=== PATIENT | male | born 1995 | race Caucasian/White ===

== ENCOUNTER 2019-09-29 11:49 | Observation (INO) | payer MEDICAID, SELFPAY ==
[2019-09-29] VITALS (10 sets, daily range): BP systolic 117–158; BP diastolic 52–87; PULSE 50–57; RESP 16–29; TEMP 36.6–36.7; O2SAT 98–100; BMI 19.6
--- NOTE | ~2019-09-29 | US_ITS ---
EXAMINATION: US right upper quadrant EXAM DATE: 09/30/2019 15:00 INDICATION: Generalized abdominal pain. TECHNIQUE: Multiple grayscale and Doppler images of the abdomen right upper quadrant were obtained (lauri y a technologist who performed the scan) and subsequently reviewed. There is no prior study for kat hilario. Correlation was made with CT abdomen from yesterday. FINDINGS: The pancreatic head and body are normal in appearance. The pancreatic tail is not visualized. The l iver has normal echogenicity and contour. There are no focal liver lesions identified. There is no evidence of intrahepatic biliary duct dilation. Portal venous flow was seen in the hepatopedal, nor mal direction and has normal Doppler waveform. No right-sided hydronephrosis. Common bile duct measures 2 mm, which is normal. The gallbladder wall is normal in thickness, with ex pected amount of distention. No sonographic evidence of pericholecystic fluid. There is no cholelit hiases. Technologist performing exam reports patient did not demonstrate sonographic Shell's sign. Please note that this sign is less reliable in patients who have received pain medication. IMPRESSION: 1. Unremarkable abdominal ultrasound exam. Reviewed, dictated and finalized at location A.
--- NOTE | ~2019-09-29 | NM_ITS ---
EXAMINATION: NM hepatobiliary w pharm DATE: 10/01/2019 14:56 INDICATION: Intractable nausea and abdominal pain COMPARISON: None. TECHNIQUE: 4.5 mCi Tc-99m mebrofenin (Choletec) was administered intravenously. Scintigraphic images of the abdomen were obtained for one hour. 1.35 mcg sincalide (Kinevac) was administered by slow int ravenous infusion, and imaging was continued for 30 minutes. Gallbladder ejection fraction was calcul ated by the technologist. FINDINGS: There is normal clearance of radiotracer from the blood pool. There is homogeneous tracer uptake by t he liver. Activity progresses to the gallbladder and bowel. The gallbladder ejection fraction is daya ble to be obtained due to large amount of activity in the small bowel which during the course of the study progresses to loops superimposed over the gallbladder. During the first 14 minutes following Ki nevac administration the amount of activity in the gallbladder appeared to slowly increase. There is however a nonquantifiable significant decrease in activity in the gallbladder between the 1 hour lenora yed images and the first image post Kinevac administration suggesting a likely normal ejection fracti on. IMPRESSION: 1. Normal hepatobiliary scan aside from nondiagnostic quantitative assessment for ejection fraction due to obscuration of the gallbladder by activity in the small bowel occurring following Kinevac admi nistration. Subjectively there appears to be normal, gallbladder ejection fraction occurring prior to Kinevac administration. Reviewed, dictated and finalized at location A. IMPRESSION: 1. Normal hepatobiliary scan aside from nondiagnostic quantitative assessment for ejection fraction due to obscuration of the gallbladder by activity in the small bowel occurring following Kinevac administration. Subjectively there appe ars to be normal, gallbladder ejection fraction occurring prior to Kinevac admi nistration.
--- NOTE | ~2019-09-29 | CT_ITS ---
EXAMINATION: CT abdomen pelvis w con DATE: 09/29/2019 13:35 INDICATION: Abdominal pain. Nausea. TECHNIQUE: Computed tomography (CT) of the abdomen and pelvis was performed with 100 cc Omnipaque 350 intravenous contrast. The dose-length product was 212.07 mGy-cm. Automated exposure control and iter ative reconstruction technique were employed. COMPARISON: None. FINDINGS: Lung bases are unremarkable. No significant pleural or pericardial effusion. Heart size is normal. No significant vascular abnormality. No lymphadenopathy. The liver, spleen, pancreas, adrenal glands and kidneys are unremarkable. Gallbladder is present. The re is a low-lying cecum which is fluid and debris-filled. No obstruction. No acute osseous abnormalit y. No free air or free fluid. IMPRESSION: 1. No acute abdominal abnormality. Reviewed, dictated and finalized at location A.
[2019-09-29] MEDS: SODIUM CHLORIDE 0.9% IV 1,000 ML 999 ML IV CONT ×2 (12:23→12:51)
[2019-09-29] MEDS: FAMOTIDINE 20 MG/2 ML VIAL IV PUSH ×2 (12:24→20:33)
[2019-09-29] MEDS: ONDANSETRON INJ 4 MG/2 ML VIAL IV PUSH (12:25)
[2019-09-29] MEDS: LORAZEPAM INJ 2 MG/ML VIAL 1 MG IV PUSH (12:30)
[2019-09-29 12:59] LABS: Basophils Percent Auto 0.4 % (0.2-1.2); Eosinophils Percent Auto 0.2 % (0-4.4); Hematocrit 46.8 % (42.0-52.0); Immature Granulocyte Absolute 0.05 K/mm3 (0.00-0.031); Immature Granulocyte Percent A 0.5 % (0-0.5); Lymphocytes Percent Auto 13.8 % (18.3-44.2); Mean Corpuscular HGB Conc 34.2 g/dl (32-36); Mean Corpuscular Hemoglobin 30.7 pg (26-34); Mean Corpuscular Volume 89.7 fl (80-100); Mean Platelet Volume 10.1 fl (7.4-10.4); Monocytes Absolute Auto 0.4 K/mm3 (0.1-0.6); Monocytes Percent Auto 3.7 % (2.6-8.5); Neutrophils Absolute Auto 8.3 K/mm3 (1.3-6.7); Neutrophils Percent Auto 81.4 % (45.5-73.1); Platelet Count Result 314 k/mm3 (150-375); Red Blood Count 5.22 M/mm3 (4.6-6.20); Red Cell Distribution Width 12.2 % (11.5-14.5); White Blood Count 10.2 K/mm3 (4.5-10.0)
[2019-09-29 13:10] LABS: Lactic Acid Reflex 1.1 mmol/L (0.7-2.1)
[2019-09-29 13:11] LABS: Alanine Aminotransferase 14 U/L (4-50); Albumin Level 4.6 g/dL (3.5-5.1); Alkaline Phosphatase 96 U/L (38-126); Aspartate Amino Transferase 22 U/L (17-59); Bilirubin,Total 1.1 mg/dL (0.2-1.3); Blood Urea Nitrogen 22 mg/dL (9-20); Calcium 8.9 mg/dL (8.4-10.2); Carbon Dioxide 16 mmol/L (22-30); Chloride 101 mmol/L (98-107); Estimated CRCL calculation 101 ml/min; Estimated Glomerular Filt Rate > 60; Glucose 73 mg/dL (75-110); Lipase 56 U/L (23-300); Potassium 3.1 mmol/L (3.4-5.0); Sodium 135 mmol/L (137-145)
--- NOTE | 2019-09-29 13:28 | ED.ABDPAIN ---
HPI - Abdominal Pain General Chief Complaint: Abdominal Pain <Lonnie Pastor PA-C - Last Filed: 09/29/19 16:37> Stated Complaint: abd pain <PAMELA Alcala Last Filed: 09/29/19 16:37> Source: patient <PAMELA Alcala Last Filed: 09/29/19 16:37> Mode of arrival: ambulatory <Lonnie Pastor PA-C - Last Filed: 09/29/19 16:37> Limitations: no limitations <Lonnie Pastor PA-C - Last Filed: 09/29/19 16:37> History of Present Illness HPI narrative: Patient is a 23-year-old male who presents to emergency department for evaluation of generalized abdominal pain noted as an aching pain worse with activity and movement patient had similar occurrence in the past. Patient has medications for pain nausea which she has taken with no improvement. Patient notes for the last 2 days he has been having vomiting with generalized abdominal pain. Patient notes he has not followed up for any reevaluation of his prior occurrence. Patient denies diarrhea rectal bleeding hematemesis URI symptoms or fever <Lonnie Pastor PA-C - Last Filed: 09/29/19 16:37> Related Data Home Medications: Home Medications Medication Instructions Recorded Confirmed ondansetron HCl [Zofran] 09/29/19 pantoprazole PO 09/29/19 <Lonnie Pastor PA-C - Last Filed: 09/29/19 16:37> Allergies/Adverse Reactions: Allergies Allergy/AdvReac Type Severity Reaction Status Date / Time No Known Allergies Allergy Verified 09/29/19 12:12 <Lonnie Pastor PA-C - Last Filed: 09/29/19 16:37> Review of Systems Review of Systems: All systems reviewed & are unremarkable except as noted in HPI and below <Lonnie Pastor PA-C - Last Filed: 09/29/19 16:37> PMFSH Social History Social History: Social History (Updated 09/29/19 @ 13:30 by Lonnie Pastor PA-C) Substance use type: amphetamines Gender identity (if verbalized by the patient): Male <Lonnie Pastor PA-C - Last Filed: 09/29/19 16:37> Exam Narrative: Exam Narrative: GENERAL: Ill-appearing, well-nourished, and acute pain distress HEAD: Normocephalic, atraumatic. EYES: PERRLA and EOMI. ENT: Nares clear, no rhinorrhea or epistaxis. Mucous membranes moist. Oropharynx without tonsillar hypertrophy exudate or other lesions. CHEST: Clear to auscultation. No respiratory distress. No wheezes rales or rhonchi HEART: Regular rate and rhythm. No murmur heard. Normal peripheral pulses. ABDOMEN: Firm with generalized tenderness and guarding, nondistended, normal active bowel sounds. EXTREMITIES: Normal range of motion. No edema. SKIN: Warm, dry, no rash. NEURO: No focal deficits. Alert and oriented x3. Cranial nerves II through XII grossly intact PSYCH: Normal mood and affect. <PAMELA Alcala Filed: 09/29/19 16:37> Course Course Emergency Course: She is patient in the room at this time aware of case findings treatment plan agreeing to stay in hospital for GI evaluation to evaluate his pain and vomiting patient aware of this and agreeing to stay in hospital attempts were made to get the patient home however he continues to have severe pain and emesis despite interventions <PAMELA Alcala Filed: 09/29/19 16:37> PARISH VISITOR/PA Physician Supervision For this encounter, I have reviewed the PA documentation, treatment plan and medical decision making: And I have had lphe-ma-[id number] time with the patient. On exam heart regular rate and rhythm without murmur, lungs clear all station bilaterally, the abdomen is soft and diffusely tender to palpation, no rebound or guarding. Discussed with patient need for admission all questions answered in agreement at this time <Paco Arana DO - Last Filed: 09/29/19 16:44> Consultations Consultation #1: Discussed case with botany laboratory assistant who will consult on patient Discussed case with hospitalist who is agreed to accept the patient <PAMELA Alcala
[2019-09-29 14:09] LABS: Add Urine Microscopic? YES; Appearance Urine Clear (Clear); Bilirubin Urine Negative (Negative); Blood Urine Negative (Negative); Color Urine Yellow (Yellow); Glucose Urine UA Negative (Negative); Ketones Urine 2+ mg/dL (Negative); Leukocyte Esterase Ur Negative LEU/UL (Negative); Mucus Urine Rare /lpf; Nitrate Urine Negative (Negative); Protein Urine 1+ mg/dL (Negative); RBC Urine 0-2 /hpf (0-2); Specific Grav Ur 1.049 (1.001-1.035); Urobilinogen Urine Negative mg/dL (<2.0); WBC Urine 0-3 /hpf
[2019-09-29 14:23] LABS: Amphetamine Screen Urine Negative (Negative); Barbiturate Screen Urine Negative (Negative); Benzodiazepines Screen Urine Negative (Negative); Cannabinoid Screen Urine Positive (Negative); Cocaine Screen Urine Negative (Negative); Methadone Screen Urine Negative (Negative); Opiate Screen Urine Positive (Negative); Phencyclidine Screen Urine Negative (Negative)
--- NOTE | 2019-09-29 14:58 | PC.NURSE ---
EVAN Hernández, at bedside discussing plan of care. Pt awakens and denies any relief of pain whatsoever at present. [facility] does not have a primary doctor nor a cyber security instructor to follow up with.
[2019-09-29] MEDS: HYOSCYAMINE SULFATE 0.125 MG TABLET PO (15:14)
[2019-09-29] MEDS: IBUPROFEN IV 800 MG/200 ML 800 MG/200 ML BAG 400 MG IVPB (15:15)
--- NOTE | 2019-09-29 15:15 | PC.NURSE ---
Pt given medication po; when took a sip of water pt immediately starts crying and states pain is worse. When asked regarding ulcers, or bloody or dark tarry stools, states he isn't aware of that happening this time .
[2019-09-29] MEDS: PROMETHAZINE HCL 25 MG/ML AMPUL 12.5 MG IV PUSH (16:44)
--- NOTE | 2019-09-29 17:59 | ADMGEN ---
This patient, Michael Westfall, was admitted to 3 [facility] Surg Room 300-01. Patient/family oriented to hospital policies and general routines including ID bracelet, bed and alarms, visiting hours, pain management, procedures, bathroom and other care routines, personal items, smoking policy, room service/diet, and visiting hours. Valuables list has been completed. Information on how to activate the Rapid Response Team has been discussed. Patient/Family are encouraged to report perceived risks to care and to ask questions if they do not understand what they are told or what they should do.
[2019-09-29] MEDS: LACTATED RINGERS 1,000 ML 125 ML IV CONT (18:06)
--- NOTE | 2019-09-29 21:23 | WPDANESEPP ---
Anes - Eval Pre Procedure Procedure: EGD Date/Time: 09/29/19 21:23 Surgeon: Giovanni Pre Op Diagnosis: Intractable abdominal pain/intractable emesis Patient Data Age: 23 Gender: M Height: 1.8 m Weight: 64 kg Last Vital Signs Temp 36.7 C 09/29/19 17:55 Pulse 57 L 09/29/19 17:55 Resp 18 09/29/19 17:55 BP 129/77 09/29/19 17:55 Pulse Ox 98 09/29/19 17:55 Allergies Allergy/AdvReac Type Severity Reaction Status Date / Time No Known Allergies Allergy Verified 09/29/19 12:12 Home Medications Medication Instructions Recorded Confirmed Type ondansetron HCl [Zofran] 4 mg PO PRN PRN 09/29/19 09/29/19 History pantoprazole 40 mg PO DAILY 09/29/19 09/29/19 History Laboratory Tests 09/29/19 09/29/19 09/29/19 12:48 12:48 12:48 WBC 10.2 K/mm3 H K/mm3 (4.5-10.0) RBC 5.22 M/mm3 M/mm3 (4.6-6.20) Hgb 16.0 g/dL g/dL (14.0-18.0) Hct 46.8 % % (42.0-52.0) MCV 89.7 fl fl (80-100) MCH 30.7 pg pg (26-34) MCHC 34.2 g/dl g/dl (32-36) RDW 12.2 % % (11.5-14.5) Plt Count 314 k/mm3 k/mm3 (150-375) MPV 10.1 fl fl (7.4-10.4) Immature Gran % (Auto) 0.5 % % (0-0.5) Neut % (Auto) 81.4 % H % (45.5-73.1) Lymph % (Auto) 13.8 % L % (18.3-44.2) [place] % (Auto) 3.7 % % (2.6-8.5) Eos % (Auto) 0.2 % % (0-4.4) Baso % (Auto) 0.4 % % (0.2-1.2) Lymph # (Auto) 1.40 K/mm3 K/mm3 (0.9-3.2) [place] # (Auto) 0.4 K/mm3 K/mm3 (0.1-0.6) Eos # (Auto) 0.0 K/mm3 K/mm3 (0-0.3) Baso # (Auto) 0.0 K/mm3 K/mm3 (0.0-0.1) Abs Immat Gran (auto) 0.05 K/mm3 H K/mm3 (0.00-0.031) Absolute Neuts (auto) 8.3 K/mm3 H K/mm3 (1.3-6.7) Absolute Nucleated RBC 0.0 K/mm3 K/mm3 (0.0-0.012) Nucleated RBC % 0.0 % % (0.0-0.2) Sodium 135 mmol/L L mmol/L (137-145) Potassium 3.1 mmol/L L mmol/L (3.4-5.0) Chloride 101 mmol/L mmol/L (98-107) Carbon Dioxide 16 mmol/L L mmol/L (22-30) BUN 22 mg/dL H mg/dL (9-20) Creatinine 0.90 mg/dL mg/dL (0.7-1.3) Estim Creat Clear Calc 101 ml/min ml/min Estimated GFR > 60 (59 - ) Glucose 73 mg/dL L mg/dL (75-110) Lactic Acid 1.1 mmol/L mmol/L (0.7-2.1) Calcium 8.9 mg/dL mg/dL (8.4-10.2) Total Bilirubin 1.1 mg/dL mg/dL (0.2-1.3) AST 22 U/L U/L (17-59) ALT 14 U/L U/L (4-50) Alkaline Phosphatase 96 U/L U/L (38-126) Total Protein 8.0 g/dL g/dL (6.3-8.2) Albumin 4.6 g/dL g/dL (3.5-5.1) Lipase 56 U/L U/L (23-300) Urine Color Urine Appearance Urine pH Ur Specific [place] Urine Protein Urine Glucose (UA) Urine Ketones Ur Blood (Man) Urine Nitrate Urine Bilirubin Urine Urobilinogen Leukocyte Esterase Rfl Urine RBC Urine WBC Urine Mucus Urine Opiates Screen Urine Methadone Screen Ur Barbiturates Screen Ur Phencyclidine Scrn Ur Amphetamine Screen U Benzodiazepines Scrn Urine Cocaine Screen U Cannabinoids Screen 09/29/19 09/29/19 13:59 13:59 WBC RBC Hgb Hct MCV MCH MCHC RDW Plt Count MPV Immature Gran % (Auto) Neut % (Auto) Lymph % (Auto) [place] % (Auto) Eos % (Auto) Baso % (Auto) Lymph # (Auto) [place] # (Auto) Eos # (Auto) Baso # (Auto) Abs Immat Gran (auto) Absolute Neuts (auto) A
--- NOTE | 2019-09-29 23:43 | PM.IMHP ---
H&P: HPI History of Present Illness Chief complaint: Intractable abdominal pain/intractable emesis Narrative: Michael Westfall is a 23 year old male who went to [facility] about 3 weeks ago with similar episode of 1 intractable nausea vomiting. The patient was prescribed omeprazole and Zofran. The patient stated that he felt better for a while until about 2 or 3 days ago. The patient stated he was eating whenever he wanted. He stated that he gave up alcohol and cigarettes about 3 weeks ago. He also gave up marijuana about 3 weeks ago. The patient stated that he has not use methamphetamines for at least 6 months. The patient came to the emergency room today because he is having some generalized abdominal pain he did not follow-up with GI after his prior occurrence. He denies any diarrhea no rectal bleeding no hematemesis. Patient's tox screen was positive for opiates and cannabinoids however it was negative for methamphetamines. Abdomen CT was read as no acute abdominal abnormality. GI has been consulted. The patient was given IV fluids, Pepcid, IV Tylenol, Zofran, Ativan, Levsin, IV Motrin and Phenergan. Patient continued to have intractable nausea vomiting. Date of service 09/29/2019 Review of Systems Review of Systems: All systems reviewed & are unremarkable except as noted in HPI and below Constitutional: Constitutional: Reports as per HPI and Reports no additional constitutional complaints Eyes: Eyes: Reports as per HPI and Reports no additional eye complaints ENT: Reports system reviewed and no additional complaints, except as documented and Reports Normal hearing present Cardiovascular: Cardiovascular: Reports no additional cardiovascular complaints Respiratory: Respiratory: Reports no additional respiratory complaints and Reports no additional respiratory complaints Gastrointestinal: Gastrointestinal: Reports as per HPI and Reports no additional gastrointestinal complaints Musculoskeletal: Musculoskeletal: Reports no additional musculoskeletal complaints Integumentary/Breasts: Skin/Breast: Reports system reviewed and no additional complaints, except as docu and Reports as per HPI Neurologic: Reports system reviewed and no additional complaints, except as documented, Reports as per HPI and Reports Normal hearing present Psychiatric: Psychiatric: Reports no additional psychiatric complaints and Reports as per HPI Endocrine: Endocrine: Reports no additional endocrine complaints Hematologic/Lymphatic: Hematologic/Lymphatic: Reports no additional hematologic/lymphatic complaints Allergic/Immunologic: Allergic/Immunologic: Reports no additional allergic/immunologic complaints [facility] Past Medical History Medical History Amphetamine use disorder, mild Marijuana use Tobacco use Surgical History Surgical History (Updated 09/29/19 @ 23:49 by Mary Mott NP) No pertinent past surgical history Family History Family History Father Pancreatitis Diabetes mellitus Social History Social History (Updated 09/29/19 @ 23:51 by Mary Mott NP) Social History: The patient lives 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 Patient stated he quit smoking marijuana 3 weeks ago however was in his drug screen today. He said he quit drinking about 3 weeks ago and that he had been a heavy drinker. He stated that he quit using methamphetamine 6 months ago. He does not have a durable power research attorney but if he has to have when he said he would probably be is mom. He desires to be a full code. 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 Smoking packs per day: 2 Smoking cigarettes per day: 40.0 Years smoked: 7 Smoking pack-years: 14.00 Smoking status: Former smoker Tobacco type: cigarettes Smoking end date: 09/27/19 Alcohol intake: former Substance use: former Substance use type: chrisa
[2019-09-30] VITALS (10 sets, daily range): BP systolic 95–145; BP diastolic 45–81; PULSE 42–65; RESP 16–24; TEMP 36.3–37.6; O2SAT 99–100
[2019-09-30] MEDS: KCL 20 MEQ/SW 100 ML 100 ML 50 MEQ IVPB (00:25)
[2019-09-30] MEDS: LACTATED RINGERS 1,000 ML 125 ML IV CONT (03:43)
[2019-09-30 06:28] LABS: Basophils Absolute Auto 0.1 K/mm3 (0.0-0.1); Basophils Percent Auto 0.7 % (0.2-1.2); Eosinophils Absolute Auto 0.2 K/mm3 (0-0.3); Eosinophils Percent Auto 2.4 % (0-4.4); Hematocrit 41.1 % (42.0-52.0); Hemoglobin 13.9 g/dL (14.0-18.0); Immature Granulocyte Absolute 0.05 K/mm3 (0.00-0.031); Immature Granulocyte Percent A 0.6 % (0-0.5); Lymphocytes Absolute Auto 3.96 K/mm3 (0.9-3.2); Mean Corpuscular HGB Conc 33.8 g/dl (32-36); Mean Corpuscular Hemoglobin 30.2 pg (26-34); Mean Corpuscular Volume 89.3 fl (80-100); Mean Platelet Volume 10.3 fl (7.4-10.4); Monocytes Absolute Auto 0.7 K/mm3 (0.1-0.6); Monocytes Percent Auto 7.3 % (2.6-8.5); Neutrophils Absolute Auto 4.1 K/mm3 (1.3-6.7); Platelet Count Result 278 k/mm3 (150-375); Red Cell Distribution Width 12.1 % (11.5-14.5)
[2019-09-30 06:52] LABS: Alanine Aminotransferase 10 U/L (4-50); Albumin Level 3.7 g/dL (3.5-5.1); Alkaline Phosphatase 65 U/L (38-126); Aspartate Amino Transferase 19 U/L (17-59); Blood Urea Nitrogen 17 mg/dL (9-20); Calcium 8.6 mg/dL (8.4-10.2); Carbon Dioxide 18 mmol/L (22-30); Chloride 106 mmol/L (98-107); Estimated CRCL calculation 128 ml/min; Estimated Glomerular Filt Rate > 60; Glucose 56 mg/dL (75-110); Magnesium 1.8 mg/dL (1.6-2.3); Potassium 3.8 mmol/L (3.4-5.0); Sodium 134 mmol/L (137-145)
[2019-09-30 06:57] LABS: Lipase 2222 U/L (23-300)
[2019-09-30] MEDS: GLUCOSE ORAL GEL 15 GM OF GLUCSE IN 37.5 GM TUBE PO (07:23)
--- NOTE | 2019-09-30 07:45 | PC.NURSE ---
Repeat POC 67. Skin w/d. Alert and oriented. Eulogio CONTINUOUS MINING MACHINE COAL MINER notified. No new orders given at this time. Monitoring closely.
[2019-09-30 07:56] LABS: Glucose Point of Care 67 (65-105)
[2019-09-30] MEDS: DEXTROSE 5%/LACTATED RINGERS 1,000 ML 100 ML IV CONT (08:11)
[2019-09-30] MEDS: FAMOTIDINE 20 MG/2 ML VIAL IV PUSH ×2 (08:12→20:37)
--- NOTE | 2019-09-30 09:41 | WPDGICN ---
Assessment and Plan Assessment and plan (1) Intractable abdominal pain: Code(s): R10.9 - Unspecified abdominal pain Status: Acute Assessment and Plan: Patient with abdominal pain nausea vomiting etiology unclear. Plan is for EGD this morning. Consider HIDA scan and follow-up labs. We will maintain patient on IV proton pump inhibitors and consider antispasmodics in the antrum. It is possible this could represent cyclical vomiting type syndrome. (2) Intractable vomiting: Code(s): R11.10 - Vomiting, unspecified Status: Acute (3) Marijuana use: Code(s): F12.90 - Cannabis use, unspecified, uncomplicated Status: Chronic GI Consult Note Consult date/time: 09/30/19 09:41 HPI: Michael Westfall is a 23 year old male seen in evaluation at the request of the hospitalist service. Patient reports a 3 week history of nausea vomiting abdominal pain. Patient initially presented to [facility] several weeks ago apparently treated with omeprazole and Zofran in noticed a brief improvement in the discomfort. Because of on 10 continuing abdominal pain variously described as cramping in intense but fluctuating intensity he presented to [facility] last evening was admitted to the hospital for further evaluation. Patient apparently has had a workup that includes complete metabolic panel CBC and a CT scan that were unremarkable. In the emergency room he was given Levsin Motrin Phenergan Ativan Zofran Tylenol and Pepcid. Patient does report several months ago having a brief similar episode treated at yet a different hospital. Past medical history otherwise noncontributory. He was on no medications at the time of presentation to our hospital. He denies any prior surgeries. Family history is reported to be noncontributory. Review of systems social history is significant for mode marijuana use however he is states that he has not done this over the last 3 weeks despite this is urine tox screen was positive for cannabinoids. Patient also reports methamphetamine use. In the past Review of Systems Review of Systems: All systems reviewed & are unremarkable except as noted in HPI and below PMFSH Past Medical History Medical History Amphetamine use disorder, mild Marijuana use Tobacco use Surgical History Surgical History No pertinent past surgical history Family History Family History Father Pancreatitis Diabetes mellitus Social History Social History Social History: The patient lives 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 Patient stated he quit smoking marijuana 3 weeks ago however was in his drug screen today. He said he quit drinking about 3 weeks ago and that he had been a heavy drinker. He stated that he quit using methamphetamine 6 months ago. He does not have a durable power business attorney but if he has to have when he said he would probably be is mom. He desires to be a full code. 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 Smoking packs per day: 2 Smoking cigarettes per day: 40.0 Years smoked: 7 Smoking pack-years: 14.00 Smoking status: Former smoker Tobacco type: cigarettes Smoking end date: 09/27/19 Alcohol intake: former Substance use: former Substance use type: marijuana Other substance usage details: Quit a couple days ago Gender identity (if verbalized by the patient): Male Spiritual care concerns: No Meds Home Medications and Allergies Home Medications Medication Instructions Recorded Confirmed Type ondansetron HCl [Zofran] 4 mg PO PRN PRN 09/29/19 09/29/19 History pantoprazole 40 mg PO DAILY 09/29/19 09/29/19 History Allergies Allergy/AdvReac Type Severity Reaction Status Date / Time No Known Allergies Allergy
[2019-09-30] MEDS: ONDANSETRON INJ 4 MG/2 ML VIAL IV PUSH ×2 (10:18→21:45)
--- NOTE | 2019-09-30 12:14 | WPDANESEPPF ---
Anes - Initial Pre Proc Eval Procedure: Operation Date: 09/30/19 12:30 Proposed Procedures p Esophagogastroduodenoscopy - Teja Davila MD Date/Time: 09/30/19 12:14 Surgeon: Britt Reddy PA-C Pre Op Diagnosis: Intractable abdominal pain/intractable emesis Patient Data Age: 23 Gender: M Height: 5 ft 11 in Weight: 64 kg Last Vital Signs Temp 99.0 F 09/30/19 08:00 Pulse 53 L 09/30/19 08:00 Resp 18 09/30/19 08:00 BP 122/65 09/30/19 08:00 Pulse Ox 100 09/30/19 08:00 Allergies Allergy/AdvReac Type Severity Reaction Status Date / Time No Known Allergies Allergy Verified 09/29/19 12:12 Home Medications Medication Instructions Recorded Confirmed Type ondansetron HCl [Zofran] 4 mg PO PRN PRN 09/29/19 09/29/19 History pantoprazole 40 mg PO DAILY 09/29/19 09/29/19 History Laboratory Tests 09/29/19 09/29/19 09/29/19 12:48 12:48 12:48 WBC 10.2 K/mm3 H K/mm3 (4.5-10.0) RBC 5.22 M/mm3 M/mm3 (4.6-6.20) Hgb 16.0 g/dL g/dL (14.0-18.0) Hct 46.8 % % (42.0-52.0) MCV 89.7 fl fl (80-100) MCH 30.7 pg pg (26-34) MCHC 34.2 g/dl g/dl (32-36) RDW 12.2 % % (11.5-14.5) Plt Count 314 k/mm3 k/mm3 (150-375) MPV 10.1 fl fl (7.4-10.4) Immature Gran % (Auto) 0.5 % % (0-0.5) Neut % (Auto) 81.4 % H % (45.5-73.1) Lymph % (Auto) 13.8 % L % (18.3-44.2) [place] % (Auto) 3.7 % % (2.6-8.5) Eos % (Auto) 0.2 % % (0-4.4) Baso % (Auto) 0.4 % % (0.2-1.2) Lymph # (Auto) 1.40 K/mm3 K/mm3 (0.9-3.2) [place] # (Auto) 0.4 K/mm3 K/mm3 (0.1-0.6) Eos # (Auto) 0.0 K/mm3 K/mm3 (0-0.3) Baso # (Auto) 0.0 K/mm3 K/mm3 (0.0-0.1) Abs Immat Gran (auto) 0.05 K/mm3 H K/mm3 (0.00-0.031) Absolute Neuts (auto) 8.3 K/mm3 H K/mm3 (1.3-6.7) Absolute Nucleated RBC 0.0 K/mm3 K/mm3 (0.0-0.012) Nucleated RBC % 0.0 % % (0.0-0.2) Sodium 135 mmol/L L mmol/L (137-145) Potassium 3.1 mmol/L L mmol/L (3.4-5.0) Chloride 101 mmol/L mmol/L (98-107) Carbon Dioxide 16 mmol/L L mmol/L (22-30) BUN 22 mg/dL H mg/dL (9-20) Creatinine 0.90 mg/dL mg/dL (0.7-1.3) Estim Creat Clear Calc 101 ml/min ml/min Estimated GFR > 60 (59 - ) Glucose 73 mg/dL L mg/dL (75-110) POC Capillary Glucose Lactic Acid 1.1 mmol/L mmol/L (0.7-2.1) Calcium 8.9 mg/dL mg/dL (8.4-10.2) Magnesium Total Bilirubin 1.1 mg/dL mg/dL (0.2-1.3) AST 22 U/L U/L (17-59) ALT 14 U/L U/L (4-50) Alkaline Phosphatase 96 U/L U/L (38-126) Total Protein 8.0 g/dL g/dL (6.3-8.2) Albumin 4.6 g/dL g/dL (3.5-5.1) Lipase 56 U/L U/L (23-300) TSH (Reflex) Urine Color Urine Appearance Urine pH Ur Specific [place] Urine Protein Urine Glucose (UA) Urine Ketones Ur Blood (Man) Urine Nitrate Urine Bilirubin Urine Urobilinogen Leukocyte Esterase Rfl Urine RBC Urine WBC Urine Mucus Urine Opiates Screen Urine Methadone Screen Ur Barbiturates Screen Ur Phencyclidine Scrn Ur Amphetamine Screen U Benzodiazepines Scrn Urine Cocaine Screen U Cannabinoids Screen 09/29/19 09/29/19 09/30/19 13:59 13:59 05:41 WBC RBC Hgb Hct MCV MCH MCHC RDW Plt Count MPV Immature Gran % (Auto) Neut % (Auto)
[2019-09-30] MEDS: LACTATED RINGERS 1,000 ML 150 ML IV CONT (12:16)
[2019-09-30] MEDS: BENZOCAINE (*SP) 60 ML SPRAY CAN (HURRICAINE) 1 SPRAY MUCOUS MEM (13:12)
--- NOTE | 2019-09-30 14:46 | PM.IMPN ---
Progress Note: A&P Assessment and Plan (1) Intractable vomiting: Code(s): R11.10 - Vomiting, unspecified Status: Acute Assessment and Plan: -----lipase is elevated over 1999 today and could be the cause of his intractable nausea and vomiting although this could be reaction to his nausea and vomiting as well. Initial scan of the abdomen on admission when his lipase was normal did not show any acute abnormalities. Since then, the pain has increased and his lipase has increased as well so we will get a right upper quadrant ultrasound. May consider a HIDA scan as well if this is negative. EGD shows esophagitis which is likely from the vomiting. Cannot rule out hyper emesis due to marijuana use or drug withdraw. (2) Intractable abdominal pain: Code(s): R10.9 - Unspecified abdominal pain Status: Acute Assessment and Plan: -----See abovve. He has a hx of drug use and I want to avoid narcotics if possible but with his lipase elevated and his severe pain, may need short course of them. (3) Marijuana use: Code(s): F12.90 - Cannabis use, unspecified, uncomplicated Status: Chronic Assessment and Plan: ------Patient could possibly have cyclic vomiting or hyperemesis as stated above. he understands he needs to quit smoking marijuana (4) Hypokalemia: Code(s): E87.6 - Hypokalemia Status: Acute Assessment and Plan: -----normal today. (5) Pancreatitis: Code(s): K85.90 - Acute pancreatitis without necrosis or infection, unspecified Status: Acute Assessment and Plan: -----lipase elevated today with worsening pain. Will obtain right upper quadrant ultrasound and possibly HIDA scan and depending on the results. Liver enzymes are normal Time Spent With Patient Time with patient: 25 - 35 minutes Subjective Date/time seen: 09/30/19 14:46 Interval history: Pt is a 23-year-old male here for abdominal pain. Patient was seen today and states his pain is significant 8/10. He said the morphine helped but now the pain is back. He mentions that he has some nausea but has not had any vomiting. The pain is mostly in his epigastric area and radiates to his left lower quadrant. He has had some constipation in the past but did have a bowel movement this morning. He gave up drinking about 3 weeks ago in his never had any issues with his gallbladder. He has been having night sweats since stopping drugs about 3 weeks ago. He last smoked weed 2 days ago. He denies chest pain, shortness of breath, leg swelling, dizziness, or lightheadedness. Review of Systems Review of Systems: All systems reviewed & are unremarkable except as noted in HPI and below Exam Narrative: Exam Narrative: General: Well developed well nourished patient resting comfortably in bed in no acute distress but in obvious pain HEENT: normocephalic, poor dentition Neck: supple Neuro: Alert and oriented x4 CV:RRR, no murmurs Resp:CTA Abd: Soft, non distended. Pain to palpation to the epigastric area in the left lower quadrant. No flank or umbilicus ecchymosis Extremities: No swelling, erythema, or pain to palpation. Objective Data Vital Signs Vital Signs: Vital Signs - 24 hr 09/29/19 14:56 09/29/19 15:30 09/29/19 15:45 Temperature Pulse Rate Respiratory Rate Blood Pressure 121/60 126/67 128/66 Pulse Oximetry 100 100 98 09/29/19 17:00 09/29/19 17:55 09/29/19 22:00 Temperature 98.1 F 97.9 F Pulse Rate 57 L 50 L Respiratory Rate 18 16 Blood Pressure 136/82 129/77 117/52 L Pulse Oximetry 100 98 99 09/30/19 02:00 09/30/19 06:48 09/30/19 08:00 Temperature 97.5 F L 97.4 F L 99.0 F Pulse Rate 44 L 44 L 53 L Respiratory Rate 16 16 18 Blood Pressure 116/54 L 124/56 L 122/65 Pulse Oximetry 99 100 100 09/30/19 12:16 09/30/19 13:21 09/30/19 13:31 Temperature 98.5 F Pulse Rate 50 L 44 L 42 L Respiratory Rate 16 18 22 H Blood Pressure
[2019-09-30] MEDS: MORPHINE SULFATE 2 MG/ML INJ IV PUSH ×2 (17:29→21:45)
[2019-09-30 18:09] LABS: Glucose Point of Care 80 (65-105)
[2019-09-30] MEDS: PANTOPRAZOLE SODIUM IV 40 MG VIAL IV PUSH (20:37)
[2019-09-30] MEDS: DICYCLOMINE HCL INJ 20 MG/2 ML VIAL IM (20:39)
--- NOTE | 2019-10-01 01:05 | PC.NURSE ---
notified of multiple episodes of bradycardia. Orders received and entered.
--- NOTE | 2019-10-01 01:06 | ECG_ITS ---
Measurements Intervals [place] Rate: 44 P: 62 TX: 146 QRS: 92 QRSD: 96 T: 64 QT: 463 QTc: 398 Interpretive Statements SINUS BRADYCARDIA RIGHT AXIS DEVIATION BASELINE WANDER- V1-V3 ABNORMAL ECG Electronically Signed On 10-01-2019 6:55:22 CDT by Shimon Hubbard D.O.
[2019-10-01 02:00] VITALS: BP 125/59; PULSE 42; RESP 16; TEMP 36.6; O2SAT 98
[2019-10-01 02:22] LABS: Glucose Point of Care 79 (65-105)
[2019-10-01] MEDS: DEXTROSE 5%/LACTATED RINGERS 1,000 ML 100 ML IV CONT ×2 (04:10→23:34)
[2019-10-01 06:00] VITALS: BP 125/63; PULSE 45; RESP 16; TEMP 36.3; O2SAT 97
[2019-10-01 06:21] LABS: Basophils Percent Auto 0.5 % (0.2-1.2); Eosinophils Absolute Auto 0.2 K/mm3 (0-0.3); Eosinophils Percent Auto 2.4 % (0-4.4); Hematocrit 40.7 % (42.0-52.0); Hemoglobin 13.8 g/dL (14.0-18.0); Immature Granulocyte Absolute 0.04 K/mm3 (0.00-0.031); Immature Granulocyte Percent A 0.5 % (0-0.5); Mean Corpuscular HGB Conc 33.9 g/dl (32-36); Mean Corpuscular Hemoglobin 30.3 pg (26-34); Mean Corpuscular Volume 89.3 fl (80-100); Mean Platelet Volume 10.5 fl (7.4-10.4); Monocytes Absolute Auto 0.6 K/mm3 (0.1-0.6); Monocytes Percent Auto 7.3 % (2.6-8.5); Neutrophils Absolute Auto 3.7 K/mm3 (1.3-6.7); Neutrophils Percent Auto 47.3 % (45.5-73.1); Platelet Count Result 278 k/mm3 (150-375); Red Blood Count 4.56 M/mm3 (4.6-6.20); White Blood Count 7.9 K/mm3 (4.5-10.0)
[2019-10-01 06:35] LABS: Alanine Aminotransferase 10 U/L (4-50); Albumin Level 3.7 g/dL (3.5-5.1); Alkaline Phosphatase 66 U/L (38-126); Aspartate Amino Transferase 21 U/L (17-59); Bilirubin,Total 0.9 mg/dL (0.2-1.3); Blood Urea Nitrogen 9 mg/dL (9-20); Calcium 8.8 mg/dL (8.4-10.2); Carbon Dioxide 24 mmol/L (22-30); Chloride 104 mmol/L (98-107); Estimated CRCL calculation 128 ml/min; Estimated Glomerular Filt Rate > 60; Glucose 99 mg/dL (75-110); Lipase 443 U/L (23-300); Magnesium 1.8 mg/dL (1.6-2.3); Phosphorus 3.4 mg/dL (2.5-4.5); Potassium 3.3 mmol/L (3.4-5.0); Sodium 136 mmol/L (137-145)
[2019-10-01 07:04] LABS: Glucose Point of Care 97 (65-105)
[2019-10-01] MEDS: MORPHINE SULFATE 2 MG/ML INJ IV PUSH (07:10)
[2019-10-01] MEDS: ONDANSETRON INJ 4 MG/2 ML VIAL IV PUSH (07:10)
[2019-10-01 08:00] VITALS: BP 127/78; PULSE 67; RESP 20; TEMP 37.3; O2SAT 100
[2019-10-01] MEDS: DICYCLOMINE HCL INJ 20 MG/2 ML VIAL IM (09:02)
--- NOTE | 2019-10-01 09:14 | PM.IMPN ---
Progress Note: A&P Assessment and Plan (1) Intractable vomiting: Code(s): R11.10 - Vomiting, unspecified Status: Acute Assessment and Plan: -----lipase has improved to 443. Ultrasound did not show any gallbladder or pancreatic abnormalities. I suspect the lipase was elevated due to the constant vomiting. Will do a HIDA scan this afternoon. All things considered, this is likely from drug withdrawal or hyperemesis/cyclic vomiting syndrome from marijuana. Will try scopolamine and dicyclomine for now. Because of his past drug use, morphine will be stopped since there is no pathology noted at this time. Will alternate Tylenol and ibuprofen at this time. Likely discharge tomorrow once HIDA results are in and he tolerates advancement is diet. He is set to get the HIDA at 12 and we will start full liquids after that. (2) Intractable abdominal pain: Code(s): R10.9 - Unspecified abdominal pain Status: Acute Assessment and Plan: -----See skyler. (3) Marijuana use: Code(s): F12.90 - Cannabis use, unspecified, uncomplicated Status: Chronic Assessment and Plan: ------Patient could possibly have cyclic vomiting or hyperemesis as stated above. he understands he needs to quit smoking marijuana (4) Hypokalemia: Code(s): E87.6 - Hypokalemia Status: Acute Assessment and Plan: -----slightly low. Will replace. (5) Pancreatitis: Code(s): K85.90 - Acute pancreatitis without necrosis or infection, unspecified Status: Acute Assessment and Plan: -----no signs of pancreatic abnormalities and lipase improving. Subjective Date/time seen: 10/01/19 09:14 Interval history: Pt is a 23-year-old male here for abdominal pain. Patient was seen today and states his abdominal pain is still present but is better than yesterday. He still having a lot of nausea but has not vomited. He has not had anything to drink. He still has this pain pretty diffusely all over but specifically at the epigastric area in the right lower quadrant. He said this comes and goes and he recently had this happen a couple months ago. It resolved on its own and he cannot attribute anything that made it better. We discussed that this could possibly be due to drugs whether it be withdrawal or hyperemesis from repeated marijuana use. He understands the risk of him continuing to get narcotic pain medication and agreed that this will be stopped. He denies chest pain, shortness of breath, leg swelling, dizziness, or lightheadedness. Exam Narrative: Exam Narrative: General: Well developed well nourished patient resting comfortably in bed in no acute distress but in obvious pain HEENT: normocephalic, poor dentition Neck: supple Neuro: Alert and oriented x4 CV:RRR, no murmurs Resp:CTA Abd: Soft, non distended. Pain to palpation to the epigastric area and in the right lower quadrant. No flank or umbilicus ecchymosis Extremities: No swelling, erythema, or pain to palpation. Objective Data Vital Signs Vital Signs: Vital Signs - 24 hr 09/30/19 12:00 09/30/19 12:16 09/30/19 13:21 Temperature 99.0 F 98.5 F Pulse Rate 65 50 L 44 L Respiratory Rate 18 16 18 Blood Pressure 125/67 145/81 H 95/51 L Pulse Oximetry 100 100 100 09/30/19 13:31 09/30/19 13:41 09/30/19 16:00 Temperature 99.6 F Pulse Rate 42 L 42 L 61 Respiratory Rate 22 H 24 H 18 Blood Pressure 112/61 106/62 124/68 Pulse Oximetry 100 100 100 09/30/19 22:00 10/01/19 02:00 10/01/19 06:00 Temperature 97.9 F 97.9 F 97.4 F L Pulse Rate 45 L 42 L 45 L Respiratory Rate 16 16 16 Blood Pressure 107/45 L 125/59 L 125/63 Pulse Oximetry 99 98 97 Intake/Output Intake/Output: Intake & Output 09/28/19 09/29/19 09/30/19 10/01/19 23:59 23:59 23:59 23:59 Intake Total 2300 2300 0 Balance 2300 2300 0 Meds/Results Medications: Active Medications Generic Name Dose Route Start Last Admin
--- NOTE | 2019-10-01 09:17 | WPDANESPN ---
Anes - Prog Note Post-Op Date/Time: 10/01/19 09:17 Cardiovascular status: normal Respiratory status: normal Airway patency: baseline Mental status: baseline Post-Op hydration status: normal Vital Signs: Last Vital Signs Temp 36.3 C L 10/01/19 06:00 Pulse 45 L 10/01/19 06:00 Resp 16 10/01/19 06:00 BP 125/63 10/01/19 06:00 Pulse Ox 97 10/01/19 06:00 I/O: Intake & Output 09/30/19 10/01/19 10/01/19 23:59 07:59 15:59 Intake Total 1000 0 Balance 1000 0 Laboratory Tests 10/01/19 05:44 10/01/19 05:44 09/30/19 10/01/19 10/01/19 17:54 01:14 05:44 WBC 7.9 RBC 4.56 L Hgb 13.8 L Hct 40.7 L MCV 89.3 MCH 30.3 MCHC 33.9 RDW 12.0 Plt Count 278 MPV 10.5 H Immature Gran % (Auto) 0.5 Neut % (Auto) 47.3 Lymph % (Auto) 42.0 Blair % (Auto) 7.3 Eos % (Auto) 2.4 Baso % (Auto) 0.5 Lymph # (Auto) 3.30 H Blair # (Auto) 0.6 Eos # (Auto) 0.2 Baso # (Auto) 0.0 Abs Immat Gran (auto) 0.04 H Absolute Neuts (auto) 3.7 Absolute Nucleated RBC 0.0 Nucleated RBC % 0.0 Sodium Potassium Chloride Carbon Dioxide BUN Creatinine Estim Creat Clear Calc Estimated GFR Glucose POC Capillary Glucose 80 79 Calcium Phosphorus Magnesium Total Bilirubin Direct Bilirubin AST ALT Alkaline Phosphatase Total Protein Albumin Lipase 10/01/19 10/01/19 05:44 07:01 WBC RBC Hgb Hct MCV MCH MCHC RDW Plt Count MPV Immature Gran % (Auto) Neut % (Auto) Lymph % (Auto) Blair % (Auto) Eos % (Auto) Baso % (Auto) Lymph # (Auto) Blair # (Auto) Eos # (Auto) Baso # (Auto) Abs Immat Gran (auto) Absolute Neuts (auto) Absolute Nucleated RBC Nucleated RBC % Sodium 136 L Potassium 3.3 L Chloride 104 Carbon Dioxide 24 BUN 9 D Creatinine 0.70 Estim Creat Clear Calc 128 Estimated GFR > 60 Glucose 99 POC Capillary Glucose 97 Calcium 8.8 Phosphorus 3.4 Magnesium 1.8 Total Bilirubin 0.9 Direct Bilirubin 0.0 AST 21 ALT 10 Alkaline Phosphatase 66 Total Protein 6.0 L Albumin 3.7 Lipase 443 H Post-procedural complaints: none Patient Feedback: Patient satisfied with anesthetic care.
[2019-10-01] MEDS: SCOPOLAMINE 1.5 MG PATCH TRANSDERM (09:22)
[2019-10-01] MEDS: FAMOTIDINE 20 MG/2 ML VIAL IV PUSH ×2 (09:58→20:07)
[2019-10-01] MEDS: PANTOPRAZOLE SODIUM IV 40 MG VIAL IV PUSH ×2 (09:58→20:07)
--- NOTE | 2019-10-01 10:24 | WPDGIPROGNO ---
Progress Note: A&P Additional Plan Patient alert this morning. States pain less intense today. He reports pain occurs episodically. Feels like a cramp in the mid epigastric area. Lipase noted to be elevated yesterday. Physical exam reveals patient to be alert. Anicteric. Comfortable at rest. Vital signs stable. Lungs are clear. Heart without murmur. Abdomen soft with mild midepigastric tenderness. No masses noted. Lipase normal on admission. 2222 yesterday. 443 today. Abdominal ultrasound and CT scan unremarkable. Impression abdominal pain associated with elevated lipase. Suspicious for biliary spasm. Possibly passed a common duct stone. Plan is for HIDA scan today. Will try antispasmodic agents. If initial workup not fruitful [facility] Subjective Date/time seen: 10/01/19 10:24 Objective Data Vital Signs Vital Signs: Vital Signs - 24 hr 09/30/19 12:00 09/30/19 12:16 09/30/19 13:21 Temperature 37.2 C 36.9 C Pulse Rate 65 50 L 44 L Respiratory Rate 18 16 18 Blood Pressure 125/67 145/81 H 95/51 L Pulse Oximetry 100 100 100 09/30/19 13:31 09/30/19 13:41 09/30/19 16:00 Temperature 37.6 C Pulse Rate 42 L 42 L 61 Respiratory Rate 22 H 24 H 18 Blood Pressure 112/61 106/62 124/68 Pulse Oximetry 100 100 100 09/30/19 22:00 10/01/19 02:00 10/01/19 06:00 Temperature 36.6 C 36.6 C 36.3 C L Pulse Rate 45 L 42 L 45 L Respiratory Rate 16 16 16 Blood Pressure 107/45 L 125/59 L 125/63 Pulse Oximetry 99 98 97 Intake/Output Intake/Output: Intake & Output 09/28/19 09/29/19 09/30/19 10/01/19 23:59 23:59 23:59 23:59 Intake Total 2300 2300 0 Balance 2300 2300 0 Meds/Results Medications: Active Medications Generic Name Dose Route Start Last Admin Trade Name Freq PRN Reason Stop Dose Admin Dextrose 12.5 gm 09/30/19 07:39 Dextrose 50% Syringe IV PUSH PRN PRN Hypoglycemia Protocol Dicyclomine HCl 20 mg 09/29/19 16:37 10/01/19 09:02 Bentyl Inj IM 20 mg Q6H PRN Administration Abdominal Cramping Famotidine 20 mg 09/29/19 21:00 10/01/19 09:58 Pepcid Iv IV PUSH 20 mg Q12HR RAIN Administration Glucagon 1 mg 09/30/19 07:39 Glucagon For Inj IM PRN PRN Hypoglycemia Protocol Glucose 15 gm 09/30/19 07:39 Glutose 15 PO PRN PRN Hypoglycemia Protocol Dextrose/Lactated Ringer's 1,000 mls @ 100 mls/hr 09/30/19 07:40 10/01/19 04:10 Dextrose 5%/Lactated Ringers IV CONT 100 mls/hr .Q10H RAIN Administration Dextrose 1,000 mls @ 100 mls/hr 09/30/19 07:39 Dextrose 5% 1,000 Ml IVPB PRN PRN Hypoglycemia Protocol Acetaminophen 1,000 mg in 100 mls @ 400 mls/hr 10/01/19 09:00 Ofirmev 1,000 Mg Ivpb IVPB 10/02/19 09:01 Q6H PRN Pain-alternate with ibuprofen Ibuprofen 400 mg/ Sodium 104 mls @ 200 mls/hr 10/01/19 12:00 Chloride IVPB Q6H PRN Pain--alternate with tylenol Potassium Chloride 100 mls @ 50 mls/hr 10/01/19 09:23 Potassium Chloride 20 Meq/Sw 100 Ml IVPB 10/01/19 11:22 ONCE ONE Lorazepam 0.5 mg 09/29/19 23:55 Ativan Inj IV PUSH Q6H PRN Anxiety Ondansetron HCl 4 mg 09/29/19 16:37 10/01/19 07:10 Zofran Inj IV PUSH 4 mg Q4H PRN Administration Nausea Pantoprazole Sodium 40 mg 09/30/19 21:00 10/01/19 09:58 Protonix Iv IV PUSH 40 mg Q12HR RAIN Administration Radiology Results: ITS Impressions Abdomen/Pelvis CT 09/29/19 13:47 IMPRESSION: 1. No acute abdominal abnormality. Upper Quadrant Ultrasound 09/30/19 15:16 IMPRESSION: 1. Unremarkable abdominal ultrasound exam. Labs Labs: Laboratory Results - last 24 hr 09/30/19 10/01/19 10/01/19 17:54 01:14 05:44 WBC 7.9 RBC 4.56 L Hgb 13.8 L Hct 40.7 L MCV 89.3 MCH 30.3 MCHC 33.9 RDW 12.0 Plt Count 278 MPV 10.
[2019-10-01] MEDS: KCL 20 MEQ/SW 100 ML 100 ML 50 MEQ IVPB (10:52)
[2019-10-01 12:00] VITALS: BP 123/85; PULSE 68; RESP 18; TEMP 37.1; O2SAT 100
[2019-10-01 16:00] VITALS: BP 126/82; PULSE 61; RESP 18; TEMP 37.1; O2SAT 100
[2019-10-01 21:59] VITALS: BP 131/71; PULSE 42; RESP 16; TEMP 37; O2SAT 98
[2019-10-02 06:00] VITALS: BP 118/64; PULSE 41; RESP 18; TEMP 36.5; O2SAT 98
[2019-10-02 06:05] LABS: Blood Urea Nitrogen 8 mg/dL (9-20); Calcium 8.9 mg/dL (8.4-10.2); Carbon Dioxide 27 mmol/L (22-30); Chloride 103 mmol/L (98-107); Estimated CRCL calculation 113 ml/min; Estimated Glomerular Filt Rate > 60; Glucose 100 mg/dL (75-110); Lipase 559 U/L (23-300); Magnesium 1.8 mg/dL (1.6-2.3); Phosphorus 3.9 mg/dL (2.5-4.5); Potassium 3.1 mmol/L (3.4-5.0); Sodium 137 mmol/L (137-145)
[2019-10-02] MEDS: POTASSIUM CHLORIDE 20 MEQ PACKET (FOR LIQUID) 40 MEQ PO (08:11)
[2019-10-02] MEDS: PANTOPRAZOLE SODIUM IV 40 MG VIAL IV PUSH (08:13)
[2019-10-02] MEDS: FAMOTIDINE 20 MG/2 ML VIAL IV PUSH (08:13)
--- NOTE | 2019-10-02 10:28 | WPDGIPROGNO ---
Progress Note: A&P Additional Plan Patient feels much better today. Tolerating diet. Denies abdominal pain. Physical exam reveals him to be alert. Vital signs are stable. Lungs are clear. Abdomen is soft and nontender. Labs reveal marked decline in lipase. Impression 1. Resolved abdominal pain. I am suspicious this represents sphincter of Oddi dysfunction. At the present time plan is to try Levsin antispasmodic agents sublingually t.i.d. p.r.n.. Avoiding drugs. Low-fat diet id current G-tube. Will ask patient to follow up in the office in several weeks. Subjective Date/time seen: 10/02/19 10:28 Objective Data Vital Signs Vital Signs: Vital Signs - 24 hr 10/01/19 12:00 10/01/19 16:00 10/01/19 21:59 Temperature 37.1 C 37.1 C 37.0 C Pulse Rate 68 61 42 L Respiratory Rate 18 18 16 Blood Pressure 123/85 126/82 131/71 Pulse Oximetry 100 100 98 10/02/19 06:00 Temperature 36.5 C Pulse Rate 41 L Respiratory Rate 18 Blood Pressure 118/64 Pulse Oximetry 98 Intake/Output Intake/Output: Intake & Output 09/29/19 09/30/19 10/01/19 10/02/19 23:59 23:59 23:59 23:59 Intake Total 2300 2300 1440 440 Balance 2300 2300 1440 440 Meds/Results Medications: Active Medications Generic Name Dose Route Start Last Admin Trade Name Freq PRN Reason Stop Dose Admin Dextrose 12.5 gm 09/30/19 07:39 Dextrose 50% Syringe IV PUSH PRN PRN Hypoglycemia Protocol Famotidine 20 mg 09/29/19 21:00 10/02/19 08:13 Pepcid Iv IV PUSH 20 mg Q12HR RAIN Administration Glucagon 1 mg 09/30/19 07:39 Glucagon For Inj IM PRN PRN Hypoglycemia Protocol Glucose 15 gm 09/30/19 07:39 Glutose 15 PO PRN PRN Hypoglycemia Protocol Hyoscyamine 0.125 mg 10/01/19 10:27 Levsin Tablet SUBLINGUAL Q4H PRN Abdominal Cramping Dextrose/Lactated Ringer's 1,000 mls @ 100 mls/hr 09/30/19 07:40 10/01/19 23:46 Dextrose 5%/Lactated Ringers IV CONT Not Given .Q10H RAIN Dextrose 1,000 mls @ 100 mls/hr 09/30/19 07:39 Dextrose 5% 1,000 Ml IVPB PRN PRN Hypoglycemia Protocol Ibuprofen 400 mg/ Sodium 104 mls @ 200 mls/hr 10/01/19 12:00 Chloride IVPB Q6H PRN Pain--alternate with tylenol Lorazepam 0.5 mg 09/29/19 23:55 Ativan Inj IV PUSH Q6H PRN Anxiety Ondansetron HCl 4 mg 09/29/19 16:37 10/01/19 07:10 Zofran Inj IV PUSH 4 mg Q4H PRN Administration Nausea Pantoprazole Sodium 40 mg 09/30/19 21:00 10/02/19 08:13 Protonix Iv IV PUSH 40 mg Q12HR RAIN Administration Radiology Results: ITS Impressions Abdomen/Pelvis CT 09/29/19 13:47 IMPRESSION: 1. No acute abdominal abnormality. Upper Quadrant Ultrasound 09/30/19 15:16 IMPRESSION: 1. Unremarkable abdominal ultrasound exam. Hepatobiliary Scan Nuclear Medicine 10/01/19 15:03 IMPRESSION: 1. Normal hepatobiliary scan aside from nondiagnostic quantitative assessment for ejection fraction due to obscuration of the gallbladder by activity in the small bowel occurring following Kinevac administration. Subjectively there appears to be normal, gallbladder ejection fraction occurring prior to Kinevac administration. Labs Labs: Laboratory Results - last 24 hr 10/02/19 05:27 Sodium 137 Potassium 3.1 L Chloride 103 Carbon Dioxide 27 BUN 8 L Creatinine 0.80 Estim Creat Clear Calc 113 Estimated GFR > 60 Glucose 100 Calcium 8.9 Phosphorus 3.9 Magnesium 1.8 Lipase 559 H
--- NOTE | 2019-10-02 10:46 | PM.DS ---
DS: Admitting Diagnosis Admitting Diagnosis Admitting Diagnosis: Vomiting, unspecified DS: Discharge Diagnosis Discharge Diagnosis (1) Intractable vomiting: Code(s): R11.10 - Vomiting, unspecified Status: Acute (2) Intractable abdominal pain: Code(s): R10.9 - Unspecified abdominal pain Status: Acute (3) Marijuana use: Code(s): F12.90 - Cannabis use, unspecified, uncomplicated Status: Chronic (4) Hypokalemia: Code(s): E87.6 - Hypokalemia Status: Acute (5) Pancreatitis: Code(s): K85.90 - Acute pancreatitis without necrosis or infection, unspecified Status: Acute DS: Summary Hospital Course Reason for hospitalization: Persistent abdominal pain Hospital Course: Patient is a 23-year-old male who presented emergency room for intractable abdominal pain and vomiting. Vitals in the ER were stable. BMP showed hypokalemia and low CO2. Lactic acid, lipase and liver enzymes normal. CT of the abdomen pelvis was negative but the patient continued to have severe pain with nausea vomiting so he was admitted. The next day his lipase increased and right upper quadrant ultrasound did not show any abnormalities. A HIDA scan was done which also did not show any abnormalities. GI saw the patient did an EGD which showed esophagitis but likely due to vomiting. The patient has had episodic vomiting and could be due to his drug use as he utilizes marijuana. Also could be due to a spasm of the sphincter of Oddi as the patient got better with levsin. The day of discharge the patient was able to take a regular diet did not have any vomiting and minimal pain. Spoke with Dr. Davila who is going to follow him up outpatient. Patient was informed not to smoke marijuana as this can worsen his case. He was educated about the worrisome signs symptoms to come back to emergency room for was discharged in stable condition. Time spent discussing smoking cessation with patient: more than 10 minutes Status at Discharge Functional status at discharge: independent ambulation Overall status at discharge: patient is back to baseline Time Spent with Patient Time attestation: Total time spent providing and/or coordinating discharge services:34 min Time spent: Greater than 30 minutes Exam Narrative: Exam Narrative: General: Well developed well nourished patient resting comfortably in bed HEENT: normocephalic, poor dentition Neck: supple Neuro: Alert and oriented x4 CV:RRR, no murmurs Resp:CTA Abd: Soft, non distended. No abdominal pain. No flank or umbilicus ecchymosis Extremities: No swelling, erythema, or pain to palpation. DS: Data Data Completed and Pending Labs on day of discharge: Labs from last 24 hours 10/02/19 05:27 Sodium 137 Potassium 3.1 L Chloride 103 Carbon Dioxide 27 BUN 8 L Creatinine 0.80 Estim Creat Clear Calc 113 Estimated GFR > 60 Glucose 100 Calcium 8.9 Phosphorus 3.9 Magnesium 1.8 Lipase 559 H Discharge Plan Discharge Attending physician on discharge: Junior Real Consulting providers: Miguelito Raya ; Lonnie Pastor ; Teja Davila Discharging Clinician: Britt Reddy Patient Disposition: Home, Self-Care Activity: as tolerated Diet: as tolerated Discharge Instructions: -Follow up with Dr. Davila. Call his office for an appointment. -Worrisome signs and symptoms to come back to the ER for: chest pain, shortness of breath, inability to keep water and food down, fevers 100.4 or greater, progressive significant weakness, or any other worrisome symptom. Patient Instructions: Antibiotic Form, Abdominal Pain (ED), Cyclic Vomiting Syndrome (GEN) Stand Alone Forms: General Discharge Information Follow-up/Referrals: Teja Davila MD [Physician] - Call for Appointment Discharge Medications: New hyoscyamine sulfate 0.125 mg tablet,disintegrating 0.125 mg PO QID PRN (Reason: abdominal discomfort
== END 2019-10-02 11:00 | disposition home or self-care (01) ==
LOC: ANHED 16:41 → ANH3MEDSUR 09-30 07:27
PROVIDERS: Emergency Medicine Emergency Medical Services; Internal Medicine Gastroenterology; Nurse Practitioner; Admitting Provider Internal Medicine; Emergency Provider Emergency Medicine; Visit Provider Physician Assistant
PROC: 0DJ08ZZ Inspection of Upper Intestinal Tract, Via Natural or Artificial Opening Endoscopic (ICD-10-PCS; CPT 43235; principal; 2019-09-30 12:30)
DX: R10.84 Generalized abdominal pain (principal); R11.10 Vomiting, unspecified; F12.90 Cannabis use, unspecified, uncomplicated; K22.10 Ulcer of esophagus without bleeding; E87.6 Hypokalemia; K85.90 Acute pancreatitis without necrosis or infection, unspecified; Z87.891 Personal history of nicotine dependence; Z79.899 Other long term (current) drug therapy
CPT/HCPCS: 43235; 36415; 74177; 76705; 78227; 80048; 80053; 80076; 80307; 81001; 83605; 83690; 83735; 84100; 84443; 85025; 87081; 93005; 96361; 96365; 96366; 96367; 96372; 96374; 96375; 96376; 99285; A9270; A9537; C9113; G0378; G0379; J0131; J0500; J1741; J2060; J2270; J2405; J2550; J2805; J3010; J3480; J7030; J7120; J7121; Q9967

== ENCOUNTER 2019-10-06 14:57 | Emergency (ER) | payer MEDICAID, SELFPAY ==
[2019-10-06] VITALS (9 sets, daily range): BP systolic 118–128; BP diastolic 68–75; PULSE 53; RESP 18; TEMP 36.6; O2SAT 97–100
--- NOTE | 2019-10-06 15:12 | ED.ABDPAIN ---
HPI - Abdominal Pain General Chief Complaint: Abdominal Pain <PAMELA Alcala Last Filed: 10/06/19 17:39> Stated Complaint: ABD PAIN <PAMELA Alcala Last Filed: 10/06/19 17:39> Time Seen by Provider: 10/06/19 15:04 <PAMELA Alcala Last Filed: 10/06/19 17:39> Source: patient <PAMELA Alcala Last Filed: 10/06/19 17:39> Mode of arrival: ambulatory <PAMELA Alcala Last Filed: 10/06/19 17:39> Limitations: no limitations <PAMELA Alcala Last Filed: 10/06/19 17:39> History of Present Illness HPI narrative: Patient is a 23-year-old male who presents to emergency department for evaluation of generalized abdominal pain worse in the left upper quadrant that began today patient has had similar occurrence with recent hospitalization had upper endoscopic which was unremarkable was prescribed Levsin and discharged home which she has not taken noted recurrence of pain today with a few episodes of emesis. Patient on arrival per EMS in the room and pain distress. <PAMELA Alcala Last Filed: 10/06/19 17:39> Related Data Home Medications: Home Medications Medication Instructions Recorded Confirmed ondansetron HCl [Zofran] 4 mg PO PRN PRN 09/29/19 09/29/19 pantoprazole 40 mg PO DAILY 09/29/19 09/29/19 hydrocodone-acetaminophen 10/06/19 <PAMELA Alcala Last Filed: 10/06/19 17:39> Allergies/Adverse Reactions: Allergies Allergy/AdvReac Type Severity Reaction Status Date / Time No Known Allergies Allergy Verified 10/06/19 15:04 <PAMELA Alcala Last Filed: 10/06/19 17:39> Review of Systems Review of Systems: All systems reviewed & are unremarkable except as noted in HPI and below <PAMELA Alcala Last Filed: 10/06/19 17:39> PMFSH Past Medical History Medical History: Medical History Amphetamine use disorder, mild Marijuana use Tobacco use <PAMELA Alcala Last Filed: 10/06/19 17:39> Surgical History Surgical History: Surgical History (Updated 10/06/19 @ 15:13 by Lonnie Pastor PA-C) History of endoscopy No pertinent past surgical history <Lonnie Pastor PA-C - Last Filed: 10/06/19 17:39> Social History Social History: Social History Social History: The patient lives 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 Patient stated he quit smoking marijuana 3 weeks ago however was in his drug screen today. He said he quit drinking about 3 weeks ago and that he had been a heavy drinker. He stated that he quit using methamphetamine 6 months ago. He does not have a durable power commercial litigation attorney but if he has to have when he said he would probably be is mom. He desires to be a full code. 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 Smoking packs per day: 2 Smoking cigarettes per day: 40.0 Years smoked: 7 Smoking pack-years: 14.00 Smoking status: Former smoker Tobacco type: cigarettes Smoking end date: 09/27/19 Alcohol intake: former Substance use: former Substance use type: marijuana Other substance usage details: Quit a couple days ago Gender identity (if verbalized by the patient): Male Spiritual care concerns: No <Lonnie Pastor PA-C - Last Filed: 10/06/19 17:39> Exam Narrative: Exam Narrative: GENERAL: Well-appearing, well-nourished, and in acute pain HEAD: Normocephalic, atraumatic. EYES: PERRLA and EOMI. ENT: Nares clear, no rhinorrhea or epistaxis. Mucous membranes moist. Oropharynx without tonsillar hypertrophy exudate or other lesions. NECK: Supple. No adenopathy or masses. No carotid bruits or JVD CHEST: Clear to auscultation. No respiratory distress. No wheezes rales or rhonchi HEART: Regular rate and rhythm. No murmur heard. Normal peripheral pulses. ABDOMEN: Soft, nontender, nondistende
[2019-10-06] MEDS: SODIUM CHLORIDE 0.9% IV 1,000 ML 999 ML IV CONT (15:36)
[2019-10-06 15:37] LABS: Basophils Absolute Auto 0.1 K/mm3 (0.0-0.1); Basophils Percent Auto 0.4 % (0.2-1.2); Eosinophils Absolute Auto 0.1 K/mm3 (0-0.3); Eosinophils Percent Auto 0.9 % (0-4.4); Hematocrit 42.5 % (42.0-52.0); Hemoglobin 14.3 g/dL (14.0-18.0); Immature Granulocyte Absolute 0.07 K/mm3 (0.00-0.031); Immature Granulocyte Percent A 0.6 % (0-0.5); Lymphocytes Absolute Auto 0.82 K/mm3 (0.9-3.2); Lymphocytes Percent Auto 6.6 % (18.3-44.2); Mean Corpuscular HGB Conc 33.6 g/dl (32-36); Mean Corpuscular Hemoglobin 30.9 pg (26-34); Mean Corpuscular Volume 91.8 fl (80-100); Mean Platelet Volume 10.2 fl (7.4-10.4); Monocytes Absolute Auto 0.7 K/mm3 (0.1-0.6); Monocytes Percent Auto 5.6 % (2.6-8.5); Neutrophils Absolute Auto 10.7 K/mm3 (1.3-6.7); Neutrophils Percent Auto 85.9 % (45.5-73.1); Platelet Count Result 277 k/mm3 (150-375); Red Blood Count 4.63 M/mm3 (4.6-6.20); Red Cell Distribution Width 12.6 % (11.5-14.5); White Blood Count 12.4 K/mm3 (4.5-10.0)
[2019-10-06] MEDS: LORAZEPAM INJ 2 MG/ML VIAL 1 MG IV PUSH (15:38)
[2019-10-06] MEDS: METOCLOPRAMIDE HCL 10 MG TABLET PO (15:40)
[2019-10-06 15:49] LABS: Alanine Aminotransferase 16 U/L (4-50); Albumin Level 4.4 g/dL (3.5-5.1); Alkaline Phosphatase 78 U/L (38-126); Aspartate Amino Transferase 21 U/L (17-59); Bilirubin,Total 0.3 mg/dL (0.2-1.3); Blood Urea Nitrogen 16 mg/dL (9-20); Calcium 9.1 mg/dL (8.4-10.2); Carbon Dioxide 24 mmol/L (22-30); Chloride 105 mmol/L (98-107); Estimated CRCL calculation 127 ml/min; Estimated Glomerular Filt Rate > 60; Glucose 92 mg/dL (75-110); Lipase 333 U/L (23-300); Potassium 3.2 mmol/L (3.4-5.0); Sodium 137 mmol/L (137-145)
== END 2019-10-06 18:06 | disposition home or self-care (01) ==
PROVIDERS: Emergency Medicine Emergency Medical Services; Emergency Provider Emergency Medicine
DX: R10.84 Generalized abdominal pain (principal); Z87.891 Personal history of nicotine dependence
CPT/HCPCS: 36415; 80053; 83690; 85025; 96361; 96374; 96375; 99284; A9270; J1200; J2060; J7030

== ENCOUNTER 2023-11-04 14:46 | Emergency (ER) | payer OTHER, SELFPAY ==
--- NOTE | ~2023-11-04 | CT_ITS ---
CT of the Abdomen and Pelvis: Indication: Abdominal pain Technique: 2.5 mm axial scans were obtained through the abdomen and pelvis following intravenous adm inistration of 100 cc of Omnipaque 350. Dose reduction technique was used on this scan by utilizing a utomated exposure control and iterative reconstruction technique. The dose-length product (DLP) was 1 98.36 mGy-cm. Findings: Scans through the lung bases are unremarkable. The liver, spleen, pancreas, adrenals and kidneys are within normal limits. Probable gallbladder slud ge and/or small stones. No evidence of aortic aneurysm. No lymphadenopathy. No bowel obstruction or bowel wall thickening. There is no evidence to suggest acute appendicitis. Images through the pelvis were performed. Urinary bladder unremarkable. No pelvic mass seen. No ascit es. Impression: Gallbladder sludge and/or small stones. Reviewed, dictated and finalized at location . Impression: Gallbladder sludge and/or small stones.
[2023-11-04 15:06] VITALS: BP 143/65; PULSE 68; RESP 20; TEMP 36.6; O2SAT 100
[2023-11-04 17:55] LABS: Basophils Percent Auto 0.1 % (0.2-1.2); Eosinophils Percent Auto 0.1 % (0-4.4); Hematocrit 43.4 % (42.0-52.0); Hemoglobin 15.2 g/dL (14.0-18.0); Immature Granulocyte Absolute 0.05 K/mm3 (0.00-0.031); Immature Granulocyte Percent A 0.3 % (0-0.5); Lymphocytes Absolute Auto 2.34 K/mm3 (0.9-3.2); Lymphocytes Percent Auto 15.8 % (18.3-44.2); Mean Corpuscular Hemoglobin 30.6 pg (26-34); Mean Corpuscular Volume 87.5 fl (80-100); Mean Platelet Volume 9.9 fl (7.4-10.4); Monocytes Absolute Auto 1.2 K/mm3 (0.1-0.6); Monocytes Percent Auto 8.1 % (2.6-8.5); Neutrophils Absolute Auto 11.2 K/mm3 (1.3-6.7); Neutrophils Percent Auto 75.6 % (45.5-73.1); Platelet Count Result 344 k/mm3 (150-375); Red Blood Count 4.96 M/mm3 (4.6-6.20); Red Cell Distribution Width 12.7 % (11.5-14.5); White Blood Count 14.8 K/mm3 (4.5-10.0)
[2023-11-04 18:07] LABS: Alanine Aminotransferase 21 U/L (6-50); Albumin Level 5.5 g/dL (3.5-5.1); Alkaline Phosphatase 74 U/L (38-126); Anion Gap 19 mmol/L (4-12); Aspartate Amino Transferase 26 U/L (17-59); Bilirubin,Total 1.2 mg/dL (0.2-1.3); Blood Urea Nitrogen 32 mg/dL (9-20); Calcium 10.1 mg/dL (8.4-10.2); Carbon Dioxide 19 mmol/L (22-30); Chloride 102 mmol/L (98-107); Estimated CRCL calculation 90 ml/min; Estimated Glomerular Filt Rate > 60; Glucose 109 mg/dL (65-110); Lipase 120 U/L (23-300); Potassium 3.3 mmol/L (3.4-5.0); Sodium 140 mmol/L (137-145)
[2023-11-04 18:11] VITALS: BP 132/78; PULSE 59; RESP 18; O2SAT 100
--- NOTE | 2023-11-04 18:27 | ED.ABDPAIN ---
HPI - Abdominal Pain General Chief Complaint: Abdominal Pain Stated Complaint: abdominal pain Time Seen by Provider: 11/04/23 17:57 History of Present Illness HPI narrative: 28-year-old male with a history of pancreatitis and chronic abdominal pain presents to the emergency department for abdominal pain. Patient states that he weighs is abdominal pain hit his left upper quadrant, sometimes it gets worse but he is unable to identify any aggravating or alleviating factors. States he had a endoscopy done many years ago which showed a gastric ulcer. States he was on medications for this but ran out many years ago and has not had any refills. He is reporting multiple episodes of nausea and vomiting and acute worsening abdominal pain in the past 4 days. he is reporting dark stools but denies hematochezia, hemoptysis or coffee-ground emesis. States he is having difficulty keeping anything down. He had a bowel movement 2 days ago after trying enemas but states this bowel movement was small. His last full bowel movement was several days ago. He denies known fever, dysuria or hematuria. Denies prior abdominal surgeries or obstipation. He states he was seen in [facility] emergency department 2 days ago where he had a lab work and did not have a CT performed. He was discharged home. He then went to [facility] yesterday and had a CT and lab work performed which was unremarkable and he was discharged home here presents today for further evaluation and management. Reports he was using marijuana daily but discontinued this 2 days ago after a the [facility] ED provider advised him to do so. He admits to a history of alcohol abuse but states he quit 3 months ago. He has not had any alcoholic beverages in 3 months per his report. States he used to drink a fifth a weekend. He also endorses a hx of methamphetamine abuse, and states he quit 6 years ago. Denies other drug use. Per chart review patient had an EGD performed in [address] Davila which showed unspecified esophagitis and esophageal erosions without bleeding. Related Data Home Medications Medication Instructions Recorded Confirmed ondansetron HCl 4 mg tablet 4 mg PO PRN PRN Nausea 09/29/19 09/29/19 (Zofran) pantoprazole 40 mg tablet,delayed 40 mg PO DAILY 09/29/19 09/29/19 release hydrocodone 5 mg-acetaminophen 325 10/06/19 mg tablet Allergies Allergy/AdvReac Type Severity Reaction Status Date / Time No Known Allergies Allergy Verified 10/06/19 15:04 Review of Systems Review of Systems: All systems reviewed & are unremarkable except as noted in HPI and below PMFSH Past Medical History Medical History Amphetamine use disorder, mild Marijuana use Tobacco use Surgical History Surgical History (Updated 10/06/19 @ 15:13 by Lonnie Pastor, PAMerna) History of endoscopy No pertinent past surgical history Family History Family History Father Pancreatitis Diabetes mellitus Social History Social History Social History: The patient lives 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 Patient stated he quit smoking marijuana 3 weeks ago however was in his drug screen today. He said he quit drinking about 3 weeks ago and that he had been a heavy drinker. He stated that he quit using methamphetamine 6 months ago. He does not have a durable power trademark attorney but if he has to have when he said he would probably be is mom. He desires to be a full code. 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 Smoking packs per day: 2 Smoking cigarettes per day: 40.0 Years smoked: 7 Smoking pack-years: 14.00 Smoking status: Former smoker Tobacco type: cigarettes Smoking end date: 09/27/19 Alcohol intake: former Substance use: former Substance use type: marijuana Other substance usage details:
[2023-11-04] MEDS: LACTATED RINGERS 1,000 ML 999 ML IV CONT ×2 (19:19→21:38)
[2023-11-04] MEDS: PANTOPRAZOLE SODIUM IV 40 MG VIAL IV PUSH (19:20)
[2023-11-04] MEDS: ONDANSETRON INJ 4 MG/2 ML VIAL IV PUSH (19:20)
[2023-11-04] MEDS: DICYCLOMINE HCL INJ 20 MG/2 ML VIAL IM (19:20)
[2023-11-04 20:19] LABS: Magnesium 2.4 mg/dL (1.6-2.3)
[2023-11-04 20:20] LABS: Lactic Acid Reflex 1.8 mmol/L (0.7-2.0)
--- NOTE | 2023-11-04 21:21 | PC.NURSE ---
patient asked PA for something for helping him relax. ativan was prescribed but patient was marianna in the 30s-40s. Discussed with Audrey GORDON and let her know that patient was not as anxious, and once pain was resolved patient calmed down and was bradycardic. noted that it is fine to hold off on the ativan
--- NOTE | 2023-11-04 21:24 | PC.NURSE ---
Pt told tech that he needs to have a urinary catheter and to be held down for it to give a urine sample. States he voids normally at home. Pt encouraged to void normally here and was able to give urine sample.
[2023-11-04] MEDS: POTASSIUM CHLORIDE 20 MEQ PACKET (FOR LIQUID) 40 MEQ PO (21:38)
[2023-11-04 21:53] LABS: Barbiturate Screen Urine Negative (Negative); Benzodiazepines Screen Urine Negative (Negative)
[2023-11-04 21:57] LABS: Amphetamine Screen Urine Negative (Negative); Cannabinoid Screen Urine Positive (Negative); Cocaine Screen Urine Negative (Negative); Methadone Screen Urine Negative (Negative); Opiate Screen Urine Negative (Negative); Phencyclidine Screen Urine Negative (Negative)
[2023-11-04 22:34] LABS: Appearance Urine Clear (Clear); Bacteria Urine None Seen /hpf; Bilirubin Urine Negative (Negative); Blood Urine Negative (Negative); Color Urine Yellow (Yellow); Glucose Urine UA Negative (Negative); Ketones Urine 1+ mg/dL (Negative); Leukocyte Esterase Ur Negative LEU/UL (Negative); Need Manual Microscopic Reviewed; Nitrate Urine Negative (Negative); Non Pathogenic Casts 0-2; Protein Urine 1+ mg/dL (Negative); RBC Urine 0-2 /hpf (0-2); Squamous Epithelial Cell Urine None Seen /hpf (Few); WBC Urine 0-5 /hpf (0-3)
[2023-11-04 22:40] LABS: Add Urine Microscopic? YES
== END 2023-11-04 22:36 | disposition home or self-care (01) ==
PROVIDERS: Student in an Organized Health Care Education/Training Program; Emergency Provider Physician Assistant
DX: R10.12 Left upper quadrant pain (principal); E86.0 Dehydration; Z87.891 Personal history of nicotine dependence
CPT/HCPCS: 36415; 74177; 80053; 80307; 81001; 83605; 83690; 83735; 85025; 96361; 96372; 96374; 96375; 99284; A9270; J0500; J2405; J2470; J7120; Q9967